=== PATIENT | female | born 1985 | race Caucasian/White ===

== ENCOUNTER 2020-12-30 08:50 | Emergency (ER) | payer BC ==
[2020-12-30] MEDS ORDERED: Ondansetron PF 4 MG/2 ML Vial ONE (09:50)
[2020-12-30 10:16] LABS: #Basophils 0.1 10x3/uL (0.0-0.2); #Eosinphils 0.1 10x3/uL (0.0-0.5); #Monocytes 0.8 10x3/uL (0.0-1.1); #Neutrophils 5.4 10x3/uL (1.5-8.4); %Basophils 0.6 % (0.0-2.0); %Eosinophils 1.4 % (0.0-6.0); %Lymphocytes 18.1 % (18.0-47.0); %Monocytes 10.2 % (0.0-10.0); %Neutrophils 69.3 % (40.0-75.0); Hemoglobin 14.9 g/dL (12.0-15.5); Mean Corpuscular HGB CONC 32.4 g/dL (32.0-36.0); Mean Corpuscular Hemoglobin 27.9 pg (27.0-33.0); Mean Platelet Volume 9.8 fl (7.4-10.4); Platelet Count 365 10x3/uL (150-450); RBC Distribution Width 12.6 % (11.5-14.5); Red Blood Cell (RBC) Count 5.35 10x6/uL (3.90-5.03); White Blood Cell (WBC) Count 7.8 10x3/uL (3.5-10.5)
[2020-12-30 10:55] LABS: ALT (SGPT) 38 U/L (8-55); AST (SGOT) 35 U/L (5-34); Albumin 4.2 g/dL (3.5-5.0); Alkaline Phosphatase 72 U/L (40-110); Anion Gap 11 mmol/L (10-20); BUN (Urea Nitrogen) 11 mg/dL (7.0-18.7); Bilirubin, Total 0.4 mg/dL (0.2-1.2); Calc. Creatinine Clearance 0 mL/min (70-130); Calcium 9.7 mg/dL (7.8-10.44); Carbon Dioxide 25 mmol/L (22-29); Chloride 104 mmol/L (98-107); Globulin 3.3 g/dL (2.4-3.5); Glucose 99 mg/dL (70-105); Lipase 8 U/L (8-78); Potassium 4.1 mmol/L (3.5-5.1); Protein, Total 7.5 g/dL (6.0-8.3); Sodium 136 mmol/L (136-145)
[2020-12-30 10:59] LABS: BHCG - Serum Negative (NEGATIVE); Pregs Control Bar Appear? YES (CONTROL BAR)
[2020-12-30 11:00] LABS: Pregs Control Background? CLEAR/WHITE (CLR/WHITE)
[2020-12-30 11:01] LABS: Bilirubin 1+ (Negative); Blood, Urine 10 (Negative); Clarity Slightly Cloudy (Clear); Glucose, Urine (Dipstick) Normal (Negative); Ketone, Urine 5 mg/dL (Negative); Leukocyte 500 (Negative); Nitrite Negative (Negative); Protein, Urine (Dipstick) 30 mg/dl (Neg-Trace); Urobilinogen Normal mg/dL (Less than 2)
[2020-12-30] MEDS ORDERED: Promethazine HCl 25 MG/ML VIAL ONE (11:13)
[2020-12-30 11:31] LABS: Bacteria/HPF 3+ HPF (None Seen); WBC/HPF 21-50 HPF (0-3)
[2020-12-30 11:32] LABS: Mucous/LPF 1+ LPF (<2+)
== END 2020-12-30 11:55 | disposition home or self-care (01) ==
LOC: CSHERS 08:50
DX: R11.2 Nausea with vomiting, unspecified (principal); R19.7 Diarrhea, unspecified; E28.2 Polycystic ovarian syndrome
CPT/HCPCS: 36415; 80053; 81003; 81015; 83605; 83690; 84703; 85025; 87086; 96365; 96375; J2405; J2550

== ENCOUNTER 2022-04-19 22:30 | Inpatient (IN) | payer BC ==
[2022-04-19] MEDS ORDERED: Morphine 4 MG/ML VIAL ONE ×2 (22:56→23:36)
[2022-04-19] MEDS ORDERED: Ondansetron PF 4 MG/2 ML Vial ONE (22:56)
[2022-04-19 23:08] LABS: Bilirubin Neg (Negative); Glucose, Urine (Dipstick) Normal (Negative); Nitrite Negative (Negative); Urobilinogen Normal mg/dL (Less than 2)
[2022-04-19 23:15] LABS: Hemoglobin 13.6 g/dL (12.0-15.5); Mean Corpuscular HGB CONC 34.6 g/dL (32.0-36.0); Mean Corpuscular Hemoglobin 28.8 pg (27.0-33.0); Mean Corpuscular Volume 83.3 fl (81.6-98.3); Mean Platelet Volume 9.7 fl (7.4-10.4); Platelet Count 461 10x3/uL (150-450); RBC Distribution Width 12.1 % (11.5-14.5); Red Blood Cell (RBC) Count 4.72 10x6/uL (3.90-5.03); White Blood Cell (WBC) Count 16.2 10x3/uL (3.5-10.5)
[2022-04-19 23:21] LABS: Ketone, Urine 5 mg/dL (Negative); Leukocyte 100 (Negative); Protein, Urine (Dipstick) 100 mg/dl (Neg-Trace); Specific Gravity, Urine 1.025 (1.005-1.030)
[2022-04-19 23:22] LABS: Blood, Urine 250 (Negative)
[2022-04-19 23:23] LABS: Bacteria/HPF 1+ HPF (None Seen); Squamous Epithelial 0-3 HPF (0-3); Yeast-Budding 2+ HPF (None Seen)
[2022-04-19 23:32] LABS: Pregnancy Test - Urine (BHCG) Negative (Negative); Pregu Control Background? CLEAR/WHITE (CLR/WHITE); Pregu Control Bar Appear? YES (CONTROL BAR); Specific Gravity 1.025 (1.002-1.036)
[2022-04-19 23:32] LABS: MDiff Complete? YES
[2022-04-19 23:34] LABS: Band 3 % (5-11); Eosinophils 4 % (0-10); Lymphocytes 25 % (21-51); Monocytes 2 % (0-10); Neutrophil 60 % (42-75); Reactive Lymphocytes 6 % (0-10)
[2022-04-19 23:36] LABS: Platelet Morphology Comment Appears Increased
[2022-04-19 23:37] LABS: RBC Morphology Normal
[2022-04-19 23:39] LABS: ALT (SGPT) 15 U/L (8-55); AST (SGOT) 19 U/L (5-34); Albumin 4.4 g/dL (3.5-5.0); Alkaline Phosphatase 76 U/L (40-110); Anion Gap 18 mmol/L (10-20); BUN (Urea Nitrogen) 16 mg/dL (7.0-18.7); Bilirubin, Total 0.3 mg/dL (0.2-1.2); Calc. Creatinine Clearance 0 mL/min (70-130); Calcium 9.9 mg/dL (7.8-10.44); Carbon Dioxide 18 mmol/L (22-29); Chloride 106 mmol/L (98-107); Estimated GFR 69; Globulin 3.2 g/dL (2.4-3.5); Glucose 140 mg/dL (70-105); Lipase 18 U/L (8-78); Potassium 3.2 mmol/L (3.5-5.1); Protein, Total 7.6 g/dL (6.0-8.3); Sodium 139 mmol/L (136-145)
[2022-04-19] MEDS ORDERED: Ketorolac Tromethamine 30 MG/ML VIAL ONE (23:42)
[2022-04-20] MEDS ORDERED: cefTRIAXone\\ROCEPHIN 2 GM VIAL ONE (01:12)
[2022-04-20] MEDS ORDERED: Guaifenesin DM 100-10/5 ML UDCUP PO PRN (01:35)
[2022-04-20] MEDS ORDERED: Zolpidem Tartrate 5 MG TAB PO PRN (01:35)
[2022-04-20] MEDS ORDERED: Senokot S 8.6-50 MG TAB PO PRN (01:35)
[2022-04-20] MEDS ORDERED: Calcium Carbonate 500 MG ChewTAB PO PRN (01:35)
[2022-04-20] MEDS ORDERED: Morphine 4 MG/ML VIAL SLOW IVP PRN ×2 (01:41)
[2022-04-20] MEDS ORDERED: Vancomycin 1 GM in Premix Bag 1 BAG IVPB SCH (01:45)
[2022-04-20] MEDS ORDERED: diphenhydrAMINE 50 MG/ML VIAL ONE (01:46)
[2022-04-20] MEDS ORDERED: Morphine 2 MG/ML VIAL ONE (01:46)
[2022-04-20 02:22] LABS: #Basophils 0.1 10x3/uL (0.0-0.2); #Eosinphils 0.1 10x3/uL (0.0-0.5); #Monocytes 0.9 10x3/uL (0.0-1.1); %Basophils 0.4 % (0.0-2.0); %Eosinophils 0.4 % (0.0-6.0); %Lymphocytes 10.1 % (18.0-47.0); %Monocytes 5.7 % (0.0-10.0); %Neutrophils 83.1 % (40.0-75.0); Hemoglobin 13.2 g/dL (12.0-15.5); Mean Corpuscular HGB CONC 34.6 g/dL (32.0-36.0); Mean Corpuscular Hemoglobin 29.1 pg (27.0-33.0); Mean Corpuscular Volume 84.3 fl (81.6-98.3); Mean Platelet Volume 9.7 fl (7.4-10.4); Platelet Count 362 10x3/uL (150-450); RBC Distribution Width 12.4 % (11.5-14.5); Red Blood Cell (RBC) Count 4.53 10x6/uL (3.90-5.03); White Blood Cell (WBC) Count 15.7 10x3/uL (3.5-10.5)
[2022-04-20 02:38] LABS: Anion Gap 15 mmol/L (10-20); BUN (Urea Nitrogen) 16 mg/dL (7.0-18.7); Calc. Creatinine Clearance 0 mL/min (70-130); Carbon Dioxide 22 mmol/L (22-29); Chloride 107 mmol/L (98-107); Estimated GFR 63; Glucose 123 mg/dL (70-105); Magnesium 1.9 mg/dL (1.6-2.6); Potassium 3.8 mmol/L (3.5-5.1); Sodium 140 mmol/L (136-145)
[2022-04-20] MEDS ORDERED: VANCOMYCIN 1.75 GM/350 ML BAG 1.75 GM in Premix Bag 1 BAG IVPB ONE ×2 (03:00→09:00)
[2022-04-20] MEDS: Lactated Ringer's 1,000 ML IV SCH ×3 (04:36→19:10)
[2022-04-20] MEDS: Potassium Chloride 20 MEQ in Premix Bag 1 BAG IVPB SCH ×3 (04:37→06:59)
[2022-04-20 07:21] VITALS: BMI 36.5
[2022-04-20] MEDS: Ketorolac Tromethamine 30 MG/ML VIAL IVP PRN ×2 (08:21→21:26)
[2022-04-20] MEDS: Ondansetron PF 4 MG/2 ML Vial IVP PRN ×2 (08:21→12:11)
[2022-04-20] MEDS: Cefepime 2 GM in Sodium Chloride 0.9% 100 ML IVPB SCH ×2 (08:22→21:26)
[2022-04-20] MEDS: Tamsulosin HCl 0.4 MG CAP PO SCH ×2 (08:25→10:08)
[2022-04-20] MEDS: Phenazopyridine HCl 95 MG TAB PO SCH ×3 (08:26→21:27)
[2022-04-20] MEDS: Famotidine/PF 20 mg/2ml Vial SLOW IVP SCH ×2 (08:27→21:27)
[2022-04-20 08:33] LABS: SARS-CoV-2 NAA Rapid Test Not Detected (NotDetected)
[2022-04-20] MEDS ORDERED: Morphine 2 MG/ML VIAL SLOW IVP SCH (09:45)
[2022-04-20] MEDS ORDERED: HYDROmorphone 0.5 MG/0.5 ML SYRINGE SLOW IVP SCH (11:45)
[2022-04-20] MEDS: Acetaminophen 500 MG TAB PO STA ×2 (12:10→12:42)
[2022-04-20] MEDS: Metoclopramide HCl 10 MG/2 ML VIAL IVP PRN (12:11)
[2022-04-20] MEDS ORDERED: PROPOFOL 20 ML ONE (13:15)
[2022-04-20] MEDS ORDERED: Fentanyl 100 MCG/2 ML VIAL ONE (13:15)
[2022-04-20] MEDS ORDERED: Ondansetron PF 4 MG/2 ML Vial ONE (13:17)
[2022-04-20] MEDS ORDERED: Dexamethasone 20 MG/5 ML VIAL ONE (13:17)
[2022-04-20] MEDS ORDERED: Lidocaine 1% PF 5 ML VIAL ONE (13:17)
[2022-04-20] MEDS ORDERED: Fluconazole In NaCl,Iso-Osm 400 MG in Premix Bag 1 BAG IVPB SCH (13:45)
[2022-04-20] MEDS ORDERED: Iopamidol 300 61% 100 ML VIAL FS ONE (14:14)
[2022-04-20 16:07] LABS: Cardiac Risk 4.3 (Less than 4.5)
[2022-04-20] MEDS: Enoxaparin Sodium 40 MG/0.4 ML SYRINGE SC SCH (21:27)
[2022-04-20] MEDS: Vancomycin HCl 1 GM in Sodium Chloride 0.9% 250 ML 250 ML IVPB SCH (22:09)
[2022-04-21] MEDS: Lactated Ringer's 1,000 ML IV SCH ×3 (04:09→18:00)
[2022-04-21] MEDS: Acetaminophen 325 MG TAB PO PRN (04:09)
[2022-04-21] MEDS ORDERED: FLU VACC QS2022-23(6MOS UP)/PF 60 MCG/0.5 ML SYRINGE IM ONE (09:00)
[2022-04-21] MEDS: Ondansetron PF 4 MG/2 ML Vial IVP PRN ×2 (09:07→17:57)
[2022-04-21] MEDS: Famotidine/PF 20 mg/2ml Vial SLOW IVP SCH ×2 (09:09→22:21)
[2022-04-21] MEDS: HYDROcodone/Acetaminophen 5/325 mg Tablet PO PRN ×3 (09:12→21:46)
[2022-04-21] MEDS: Tamsulosin HCl 0.4 MG CAP PO SCH (09:13)
[2022-04-21] MEDS: Phenazopyridine HCl 95 MG TAB PO SCH ×2 (09:13→22:58)
[2022-04-21] MEDS: Cefepime 2 GM in Sodium Chloride 0.9% 100 ML IVPB SCH ×2 (09:17→22:21)
[2022-04-21 10:06] LABS: #Monocytes 0.5 10x3/uL (0.0-1.1); #Neutrophils 14.7 10x3/uL (1.5-8.4); %Basophils 0.1 % (0.0-2.0); %Lymphocytes 8.2 % (18.0-47.0); %Monocytes 3.1 % (0.0-10.0); %Neutrophils 87.7 % (40.0-75.0); Hemoglobin 12.7 g/dL (12.0-15.5); Mean Corpuscular HGB CONC 33.2 g/dL (32.0-36.0); Mean Corpuscular Hemoglobin 28.9 pg (27.0-33.0); Mean Corpuscular Volume 87.2 fl (81.6-98.3); Mean Platelet Volume 9.9 fl (7.4-10.4); Platelet Count 376 10x3/uL (150-450); RBC Distribution Width 12.5 % (11.5-14.5); Red Blood Cell (RBC) Count 4.39 10x6/uL (3.90-5.03); White Blood Cell (WBC) Count 16.8 10x3/uL (3.5-10.5)
[2022-04-21] MEDS: Vancomycin HCl 1 GM in Sodium Chloride 0.9% 250 ML 250 ML IVPB SCH ×2 (10:39→22:58)
[2022-04-21 10:57] LABS: ALT (SGPT) 8 U/L (8-55); AST (SGOT) 14 U/L (5-34); Albumin 3.6 g/dL (3.5-5.0); Alkaline Phosphatase 60 U/L (40-110); Anion Gap 11 mmol/L (10-20); BUN (Urea Nitrogen) 17 mg/dL (7.0-18.7); Bilirubin, Total 0.5 mg/dL (0.2-1.2); Calc. Creatinine Clearance 144 mL/min (70-130); Calcium 8.9 mg/dL (7.8-10.44); Carbon Dioxide 22 mmol/L (22-29); Chloride 107 mmol/L (98-107); Estimated GFR 81; Globulin 2.7 g/dL (2.4-3.5); Glucose 126 mg/dL (70-105); Phosphorus 2.6 mg/dL (2.3-4.7); Potassium 3.9 mmol/L (3.5-5.1); Protein, Total 6.3 g/dL (6.0-8.3); Sodium 136 mmol/L (136-145)
[2022-04-21 11:22] LABS: Lactic Acid 1.2 mmol/L (0.5-2.2)
[2022-04-21] MEDS: Metoclopramide HCl 10 MG/2 ML VIAL IVP PRN (19:55)
[2022-04-21 21:52] LABS: Vancomycin, Trough 13.5 ug/mL
[2022-04-21] MEDS: Enoxaparin Sodium 40 MG/0.4 ML SYRINGE SC SCH (22:21)
[2022-04-22 04:32] LABS: #Neutrophils 12.9 10x3/uL (1.5-8.4); %Basophils 0.2 % (0.0-2.0); %Eosinophils 0.1 % (0.0-6.0); %Lymphocytes 14.7 % (18.0-47.0); %Monocytes 6.2 % (0.0-10.0); %Neutrophils 78.4 % (40.0-75.0); Hemoglobin 11.2 g/dL (12.0-15.5); Mean Corpuscular HGB CONC 33.1 g/dL (32.0-36.0); Mean Corpuscular Hemoglobin 28.9 pg (27.0-33.0); Mean Corpuscular Volume 87.1 fl (81.6-98.3); Mean Platelet Volume 9.9 fl (7.4-10.4); Platelet Count 320 10x3/uL (150-450); RBC Distribution Width 12.7 % (11.5-14.5); Red Blood Cell (RBC) Count 3.88 10x6/uL (3.90-5.03); White Blood Cell (WBC) Count 16.5 10x3/uL (3.5-10.5)
[2022-04-22 04:49] LABS: ALT (SGPT) 8 U/L (8-55); AST (SGOT) 10 U/L (5-34); Albumin 3.3 g/dL (3.5-5.0); Alkaline Phosphatase 53 U/L (40-110); Anion Gap 11 mmol/L (10-20); BUN (Urea Nitrogen) 18 mg/dL (7.0-18.7); Bilirubin, Total 0.3 mg/dL (0.2-1.2); Calc. Creatinine Clearance 157 mL/min (70-130); Calcium 8.3 mg/dL (7.8-10.44); Carbon Dioxide 23 mmol/L (22-29); Chloride 110 mmol/L (98-107); Estimated GFR 90; Globulin 2.2 g/dL (2.4-3.5); Glucose 112 mg/dL (70-105); Magnesium 1.8 mg/dL (1.6-2.6); Potassium 4.1 mmol/L (3.5-5.1); Protein, Total 5.5 g/dL (6.0-8.3); Sodium 140 mmol/L (136-145)
[2022-04-22] MEDS: Lactated Ringer's 1,000 ML IV SCH ×2 (07:51→17:27)
[2022-04-22] MEDS: Tamsulosin HCl 0.4 MG CAP PO SCH (08:57)
[2022-04-22] MEDS: Phenazopyridine HCl 95 MG TAB PO SCH ×2 (08:57→21:49)
[2022-04-22] MEDS: Cefepime 2 GM in Sodium Chloride 0.9% 100 ML IVPB SCH (08:57)
[2022-04-22] MEDS ORDERED: Fluconazole 100 MG TAB PO SCH (10:00)
[2022-04-22] MEDS: Acetaminophen 325 MG TAB PO PRN (10:43)
[2022-04-22] MEDS: Ondansetron PF 4 MG/2 ML Vial IVP PRN ×2 (10:43→17:53)
[2022-04-22] MEDS ORDERED: Vancomycin HCl 1 GM in Sodium Chloride 0.9% 250 ML 250 ML IVPB SCH (11:00)
[2022-04-22] MEDS ORDERED: Trospium 20 MG TAB PO SCH (13:00)
[2022-04-22] MEDS ORDERED: Meropenem 1 GM in Sodium Chloride 0.9% 100 ML IVPB SCH (14:00)
[2022-04-22] MEDS: HYDROcodone/Acetaminophen 5/325 mg Tablet PO PRN (17:53)
[2022-04-22] MEDS: Trospium 20 MG TAB PO SCH (21:49)
[2022-04-22] MEDS: Enoxaparin Sodium 40 MG/0.4 ML SYRINGE SC SCH (21:49)
[2022-04-22] MEDS: Meropenem 1 GM in Sodium Chloride 0.9% 100 ML IVPB SCH (21:49)
[2022-04-23 05:29] LABS: Hemoglobin 10.8 g/dL (12.0-15.5); Mean Corpuscular HGB CONC 33.3 g/dL (32.0-36.0); Mean Corpuscular Hemoglobin 29.4 pg (27.0-33.0); Mean Corpuscular Volume 88.3 fl (81.6-98.3); Mean Platelet Volume 10.1 fl (7.4-10.4); Platelet Count 281 10x3/uL (150-450); RBC Distribution Width 12.5 % (11.5-14.5); Red Blood Cell (RBC) Count 3.67 10x6/uL (3.90-5.03); White Blood Cell (WBC) Count 9.4 10x3/uL (3.5-10.5)
[2022-04-23] MEDS: Meropenem 1 GM in Sodium Chloride 0.9% 100 ML IVPB SCH ×3 (05:33→21:51)
[2022-04-23] MEDS: HYDROcodone/Acetaminophen 5/325 mg Tablet PO PRN ×3 (05:39→16:46)
[2022-04-23] MEDS: Ondansetron PF 4 MG/2 ML Vial IVP PRN ×2 (05:40→21:55)
[2022-04-23] MEDS: Metoclopramide HCl 10 MG/2 ML VIAL IVP PRN (09:41)
[2022-04-23] MEDS: Fluconazole 100 MG TAB PO SCH (11:07)
[2022-04-23] MEDS: Phenazopyridine HCl 95 MG TAB PO SCH ×2 (11:07→22:30)
[2022-04-23] MEDS: Trospium 20 MG TAB PO SCH ×2 (11:07→21:51)
[2022-04-23] MEDS: Tamsulosin HCl 0.4 MG CAP PO SCH (11:17)
[2022-04-23] MEDS: Lactated Ringer's 1,000 ML IV SCH ×2 (16:49→16:56)
[2022-04-23] MEDS: Enoxaparin Sodium 40 MG/0.4 ML SYRINGE SC SCH (21:51)
[2022-04-23] MEDS ORDERED: Phenazopyridine HCl 95 MG TAB PO SCH (22:30)
[2022-04-24] MEDS: HYDROcodone/Acetaminophen 5/325 mg Tablet PO PRN ×2 (01:23→05:21)
[2022-04-24] MEDS: Meropenem 1 GM in Sodium Chloride 0.9% 100 ML IVPB SCH ×3 (05:19→21:24)
[2022-04-24] MEDS ORDERED: Rizatriptan Benzoate 10 MG MLT TAB PO PRN (11:25)
[2022-04-24] MEDS ORDERED: Morphine 2 MG/ML VIAL SLOW IVP PRN (11:26)
[2022-04-24] MEDS ORDERED: Iopamidol 300 61% 100 ML VIAL FS ONE (13:51)
[2022-04-24] MEDS ORDERED: diphenhydrAMINE 50 MG/ML VIAL IVP SCH (14:00)
[2022-04-24] MEDS ORDERED: Famotidine/PF 20 mg/2ml Vial SLOW IVP SCH (14:00)
[2022-04-24] MEDS ORDERED: methylPREDNISolone Sod Succ 40 MG VIAL IVP SCH (14:15)
[2022-04-24] MEDS: Ondansetron PF 4 MG/2 ML Vial IVP PRN (15:35)
[2022-04-24] MEDS: Tamsulosin HCl 0.4 MG CAP PO SCH (16:44)
[2022-04-24] MEDS: Trospium 20 MG TAB PO SCH ×2 (16:44→21:23)
[2022-04-24] MEDS: Fluconazole 100 MG TAB PO SCH (16:44)
[2022-04-24] MEDS: Lactated Ringer's 1,000 ML IV SCH (16:44)
[2022-04-24] MEDS ORDERED: diphenhydrAMINE 50 MG/ML VIAL ONE (18:53)
[2022-04-24] MEDS ORDERED: Famotidine/PF 20 mg/2ml Vial ONE (18:54)
[2022-04-24] MEDS: methylPREDNISolone Sod Succ 40 MG VIAL IVP SCH (19:46)
[2022-04-24] MEDS: Enoxaparin Sodium 40 MG/0.4 ML SYRINGE SC SCH (21:23)
[2022-04-24] MEDS: Phenazopyridine HCl 95 MG TAB PO SCH (21:23)
[2022-04-25 05:11] LABS: Hemoglobin 13.4 g/dL (12.0-15.5); Mean Corpuscular HGB CONC 34.4 g/dL (32.0-36.0); Mean Corpuscular Hemoglobin 28.9 pg (27.0-33.0); Mean Platelet Volume 9.9 fl (7.4-10.4); Platelet Count 418 10x3/uL (150-450); RBC Distribution Width 11.8 % (11.5-14.5); Red Blood Cell (RBC) Count 4.63 10x6/uL (3.90-5.03); White Blood Cell (WBC) Count 12.4 10x3/uL (3.5-10.5)
[2022-04-25] MEDS: Meropenem 1 GM in Sodium Chloride 0.9% 100 ML IVPB SCH (06:13)
[2022-04-25] MEDS: methylPREDNISolone Sod Succ 40 MG VIAL IVP SCH (06:18)
[2022-04-25] MEDS: Lactated Ringer's 1,000 ML IV SCH ×2 (06:18→09:23)
[2022-04-25] MEDS: Trospium 20 MG TAB PO SCH (09:24)
[2022-04-25] MEDS: Tamsulosin HCl 0.4 MG CAP PO SCH (09:24)
[2022-04-25] MEDS: Phenazopyridine HCl 95 MG TAB PO SCH (09:24)
[2022-04-25] MEDS: Fluconazole 100 MG TAB PO SCH (09:24)
[2022-04-25 11:26] VITALS: BP 120/78; TEMP 98
[2022-04-26 08:10] LABS: CA Oxalate Dihydrate 80 % (.); CA Oxalate Monohydrate 20 % (.); Color Tan (.); Stone Weight 24 mg (.)
== END 2022-04-25 11:15 | disposition home or self-care (01) | DRG 854 ==
LOC: CSHERS 22:30 → CSHPP 04-20 03:59 → OBSVTOIN 04-20 04:00 → CSHTELE 04-24 17:45
PROVIDERS: ADMIT Student in an Organized Health Care Education/Training Program; ATTEND Hospitalist
PROC: 0TC78ZZ Extirpation of Matter from Left Ureter, Via Natural or Artificial Opening Endoscopic (ICD-10-PCS; principal; 2022-04-20)
PROC: 0T778DZ Dilation of Left Ureter with Intraluminal Device, Via Natural or Artificial Opening Endoscopic (ICD-10-PCS; 2022-04-20)
PROC: BT1F1ZZ Fluoroscopy of Left Kidney, Ureter and Bladder using Low Osmolar Contrast (ICD-10-PCS; 2022-04-20)
PROC: 3E03329 Introduction of Other Anti-infective into Peripheral Vein, Percutaneous Approach (ICD-10-PCS; 2022-04-20)
DX: A41.9 Sepsis, unspecified organism (principal); N13.6 Pyonephrosis; E87.6 Hypokalemia; I48.0 Paroxysmal atrial fibrillation; E66.9 Obesity, unspecified; E28.2 Polycystic ovarian syndrome; R73.9 Hyperglycemia, unspecified; G43.909 Migraine, unspecified, not intractable, without status migrainosus; Z88.8 Allergy status to other drugs, medicaments and biological substances; Z88.0 Allergy status to penicillin; Z79.899 Other long term (current) drug therapy; Z90.49 Acquired absence of other specified parts of digestive tract; Z68.36 Body mass index [BMI] 36.0-36.9, adult
CPT/HCPCS: 36415; 51600; 74176; 74177; 74430; 80048; 80053; 80061; 80202; 81003; 81015; 81025; 82365; 83036; 83605; 83690; 83735; 84100; 84145; 85025; 85027; 87040; 87086; 87205; 88300; 96361; 96365; 96375; 96376; C2617; J0692; J0696; J0780; J1100; J1170; J1200; J1650; J1885; J2185; J2270; J2405; J2704; J2765; J2920; J3010; J3370; J3480; J3490; J7050; J7120; Q9967; S0028; U0002

== ENCOUNTER 2022-06-22 22:54 | Emergency (ER) | payer BC ==
[2022-06-23] MEDS ORDERED: Ketorolac Tromethamine 30 MG/ML VIAL ONE ×3 (00:09→17:39)
[2022-06-23] MEDS ORDERED: Ondansetron ODT 4 MG TAB ONE (00:09)
[2022-06-23 00:20] LABS: #Basophils 0.1 10x3/uL (0.0-0.2); #Eosinphils 0.3 10x3/uL (0.0-0.5); #Monocytes 0.9 10x3/uL (0.0-1.1); #Neutrophils 7.1 10x3/uL (1.5-8.4); %Basophils 0.9 % (0.0-2.0); %Eosinophils 2.5 % (0.0-6.0); %Lymphocytes 22.9 % (18.0-47.0); %Monocytes 8.6 % (0.0-10.0); %Neutrophils 64.8 % (40.0-75.0); Hemoglobin 12.6 g/dL (12.0-15.5); Mean Corpuscular HGB CONC 34.1 g/dL (32.0-36.0); Mean Corpuscular Hemoglobin 29.1 pg (27.0-33.0); Mean Corpuscular Volume 85.5 fl (81.6-98.3); Platelet Count 373 10x3/uL (150-450); RBC Distribution Width 12.3 % (11.5-14.5); Red Blood Cell (RBC) Count 4.33 10x6/uL (3.90-5.03); White Blood Cell (WBC) Count 10.9 10x3/uL (3.5-10.5)
[2022-06-23 00:21] LABS: Bilirubin Neg (Negative); Blood, Urine 50 (Negative); Clarity Slightly Cloudy (Clear); Glucose, Urine (Dipstick) Normal (Negative); Ketone, Urine 5 mg/dL (Negative); Leukocyte 25 (Negative); Nitrite Negative (Negative); Protein, Urine (Dipstick) 15 mg/dl (Neg-Trace); Specific Gravity, Urine 1.025 (1.005-1.030); Urobilinogen Normal mg/dL (Less than 2)
[2022-06-23 00:23] LABS: BHCG - Serum Negative (NEGATIVE); Pregs Control Background? CLEAR/WHITE (CLR/WHITE); Pregs Control Bar Appear? YES (CONTROL BAR)
[2022-06-23 00:31] LABS: ALT (SGPT) 15 U/L (8-55); AST (SGOT) 17 U/L (5-34); Albumin 4.1 g/dL (3.5-5.0); Alkaline Phosphatase 70 U/L (40-110); Anion Gap 11 mmol/L (10-20); BUN (Urea Nitrogen) 15 mg/dL (7.0-18.7); Bilirubin, Total 0.3 mg/dL (0.2-1.2); Calc. Creatinine Clearance 0 mL/min (70-130); Calcium 9.4 mg/dL (7.8-10.44); Carbon Dioxide 26 mmol/L (22-29); Chloride 105 mmol/L (98-107); Estimated GFR 76; Globulin 2.8 g/dL (2.4-3.5); Glucose 117 mg/dL (70-105); Protein, Total 6.9 g/dL (6.0-8.3); Sodium 138 mmol/L (136-145)
[2022-06-23 00:34] LABS: Bacteria/HPF 1+ HPF (None Seen); Mucous/LPF 4+ LPF (<2+)
[2022-06-23] MEDS ORDERED: Morphine 4 MG/ML VIAL ONE (01:55)
[2022-06-23] MEDS ORDERED: Acetaminophen 500 MG TAB ONE (06:00)
[2022-06-23] MEDS ORDERED: Fentanyl 100 MCG/2 ML VIAL ONE ×3 (15:22→17:15)
[2022-06-23] MEDS ORDERED: Levofloxacin 500 mg/D5W 100 ml Premix Bag ONE (16:23)
[2022-06-23] MEDS ORDERED: Lidocaine 1% PF 5 ML VIAL ONE (17:15)
[2022-06-23] MEDS ORDERED: Succinylcholine 200 MG/10 ml SYRINGE FS ONE (17:15)
[2022-06-23] MEDS ORDERED: Rocuronium Bromide 10 MG/ML (10ML VIAL) ONE (17:15)
[2022-06-23] MEDS ORDERED: PROPOFOL 20 ML ONE (17:15)
[2022-06-23] MEDS ORDERED: Ondansetron PF 4 MG/2 ML Vial ONE (17:15)
[2022-06-23] MEDS ORDERED: Dexamethasone 20 MG/5 ML VIAL ONE (17:28)
[2022-06-23] MEDS ORDERED: Metoclopramide HCl 10 MG/2 ML VIAL ONE (17:38)
[2022-06-23] MEDS ORDERED: Iopamidol 300 61% 50 ML VIAL FS ONE (18:07)
== END 2022-06-23 19:15 | disposition home or self-care (01) ==
LOC: CSHERS 22:54
DX: N13.2 Hydronephrosis with renal and ureteral calculous obstruction (principal); I10 Essential (primary) hypertension
CPT/HCPCS: 51600; 74176; 74430; 80053; 81003; 81015; 84703; 85025; 96361; 96374; 96375; 96376; C2625; J1100; J1885; J1956; J2270; J2405; J2704; J2765; J3010; Q0162; Q9967

== ENCOUNTER 2023-03-15 10:18 | Outpatient (CLI) | payer BC | END 2023-03-15 10:19 | disposition home or self-care (01) | LOC: CSHMAMMO 10:18 | PROVIDERS: ATTEND Nurse Practitioner Family | DX: Z53.9 Procedure and treatment not carried out, unspecified reason (principal) ==

== ENCOUNTER 2023-03-19 08:13 | Outpatient (CLI) | payer BC | END 2023-03-19 08:14 | disposition home or self-care (01) | LOC: CSHMAMMO 08:13 | PROVIDERS: ATTEND Nurse Practitioner Family | DX: N64.52 Nipple discharge (principal) | CPT/HCPCS: 77066; G0279 ==

== ENCOUNTER 2023-05-19 09:09 | Outpatient (CLI) | payer BC | END 2023-05-19 09:10 | disposition home or self-care (01) | LOC: CSHULT 09:09 | PROVIDERS: ATTEND Neurological Surgery | DX: I82.401 Acute embolism and thrombosis of unspecified deep veins of right lower extremity (principal) ==